=== PATIENT | female | born 1995 | race Two or more races ===

== ENCOUNTER 2021-01-03 04:09 | Emergency (ER) | payer BC ==
[~2021-01-03] VITALS: Ht 157.5 cm; Wt 108.9 kg
[2021-01-03 04:55] LABS: Urine WBC None Seen /hpf (0 - 5)
[2021-01-03 05:22] LABS: Urine Amorphous Crystal FEW /hpf (None Seen); Urine Bacteria FEW /hpf (None Seen); Urine Blood 2+ /uL (Negative); Urine Mucus FEW (None Seen); Urine Specific Gravity 1.015 (1.001-1.035)
[2021-01-03 05:45] LABS: Basophils # (auto) 0 10 ^3/uL (0-0.2); Basophils % (auto) 0.3 % (0.0-2.0); Eosinophils # (auto) 0.1 10 ^3/uL (0-0.8); Eosinophils % (auto) 0.9 % (0.0-7.0); Hematocrit 37.1 % (36.0-46.0); Hemoglobin 12.3 g/dL (12.2-16.2); Lymphocytes % (auto) 23.7 % (10.0-50.0); Mean Corpuscular Hemoglobin 29.3 pg (28.0-32.0); Mean Corpuscular Hgb Conc. 33.2 g/dL (32.0-36.0); Mean Corpuscular Volume 88.3 fL (80.0-100.0); Monocytes # (auto) 0.9 10 ^3/uL (0-1.3); Monocytes % (auto) 6.9 % (0.0-12.0); Neutrophils # (auto) 8.5 10 ^3/uL (1.6-8.6); Neutrophils % (auto) 68.2 % (37.0-80.0); Red Blood Cells 4.21 10^6/uL (4.0-5.20); Red Cell Distribution Width 13.7 % (11.8-14.3); White Blood Cell 12.5 10^3/uL (4.4-10.8)
[2021-01-03 06:16] LABS: Calcium 8.8 mg/dL (8.5-10.1); Potassium 3.6 mmol/L (3.5-5.1)
[2021-01-03 06:20] LABS: BUN/Creatinine Ratio 16.4; Bilirubin, Total 0.2 mg/dL (0.2-1.0)
[2021-01-03 07:54] VITALS: BP 110/67
[2021-01-03] MEDS ORDERED: SODIUM CHLORIDE 0.9% 1,000 ML IV ONE (08:30)
== END 2021-01-03 09:49 | disposition home or self-care (01) ==
LOC: ER 04:12
DX: O26.892 Other specified pregnancy related conditions, second trimester (principal); E86.0 Dehydration; D72.829 Elevated white blood cell count, unspecified; Z3A.19 19 weeks gestation of pregnancy
CPT/HCPCS: 36415; 76805; 80053; 81001; 84702; 85025; 86850; 86900; 86901; 96360; 99285; J7030

== ENCOUNTER 2021-05-17 12:40 | Observation (INO) | payer BC | END 2021-05-17 14:00 | disposition home or self-care (01) | LOC: LDRP 12:40 | PROVIDERS: ADMIT Obstetrics & Gynecology; ATTEND Obstetrics & Gynecology | DX: O62.9 Abnormality of forces of labor, unspecified (principal); Z3A.38 38 weeks gestation of pregnancy; Z91.040 Latex allergy status | CPT/HCPCS: 59025; 81002; G0378; G0379 ==

== ENCOUNTER 2023-02-15 07:45 | Day surgery (SDC) | payer MEDICAID ==
[2023-02-13 09:10] LABS: Basophils # (auto) 0 10 ^3/uL (0-0.2); Basophils % (auto) 0.5 % (0.0-2.0); Eosinophils # (auto) 0.1 10 ^3/uL (0-0.8); Eosinophils % (auto) 1.1 % (0.0-7.0); Hematocrit 40.3 % (36.0-46.0); Hemoglobin 13.4 g/dL (12.2-16.2); Lymphocytes % (auto) 28.4 % (10.0-50.0); Mean Corpuscular Hemoglobin 28.1 pg (28.0-32.0); Mean Corpuscular Hgb Conc. 33.2 g/dL (32.0-36.0); Mean Corpuscular Volume 84.6 fL (80.0-100.0); Monocytes # (auto) 0.7 10 ^3/uL (0-1.3); Monocytes % (auto) 6.5 % (0.0-12.0); Neutrophils # (auto) 6.7 10 ^3/uL (1.6-8.6); Neutrophils % (auto) 63.5 % (37.0-80.0); Nucleated Red Blood Cells % 0.1 %; Red Blood Cells 4.76 10^6/uL (4.0-5.20); White Blood Cell 10.5 10^3/uL (4.4-10.8)
[2023-02-13 09:13] LABS: Urine Bacteria NONE SEEN /hpf (None Seen); Urine Blood 2+ /uL (Negative); Urine Mucus FEW (None Seen); Urine WBC 3 /hpf (0 - 5)
[2023-02-13 09:19] LABS: INR 0.95 (0.9-1.15); Partial Thromboplastin Time 32.2 sec (24.6-33.4)
[2023-02-13 09:41] LABS: Albumin 3.8 g/dL (3.4-5.0); Calcium 8.5 mg/dL (8.5-10.1); Potassium 4.3 mmol/L (3.5-5.1)
[2023-02-13 09:44] LABS: BUN/Creatinine Ratio 18.1 (10.0-20.0); Bilirubin, Total 0.2 mg/dL (0.2-1.0); Total Protein 7.9 g/dL (6.4-8.2)
[~2023-02-15] VITALS: Ht 160 cm; Wt 113.4 kg
[~2023-02-15 07:45] MED LIST: PANT40TA2 PO
[2023-02-15] MEDS ORDERED: NALOXONE HCL 0.4 MG/ML VIAL ONE (08:10)
[2023-02-15] MEDS ORDERED: LIDOCAINE VISCOUS 2% 15ML UD ONE (08:10)
[2023-02-15] MEDS ORDERED: FLUMAZENIL 0.1 MG/ML INJ 10ML MDV IV ONE (08:10)
[2023-02-15] MEDS ORDERED: SODIUM CHLORIDE LOCK 0 ML ONE (08:10)
[2023-02-15] MEDS ORDERED: diphenhdrAMINE HCL 50 MG/1 ML VL ONE (08:11)
[2023-02-15] MEDS: MIDAZOLAM HCL 5 MG/ML-1ML VIAL ONE ×2 (08:27→08:30)
[2023-02-15] MEDS: fentaNYL CITRATE 100 MCG/2 ML VL ONE ×2 (08:27→08:30)
[2023-02-15 09:05] VITALS: BP 121/70
== END 2023-02-15 09:30 | disposition home or self-care (01) ==
LOC: GI 07:45
PROVIDERS: ATTEND Internal Medicine Gastroenterology
DX: R10.13 Epigastric pain (principal); R11.0 Nausea; K29.50 Unspecified chronic gastritis without bleeding
CPT/HCPCS: 36415; 43239; 80053; 81001; 81025; 85025; 85610; 85730; J1200; J2250; J2310; J3010

== ENCOUNTER 2023-07-11 19:35 | Emergency (ER) | payer MEDICAID ==
[~2023-07-11] VITALS: Ht 160 cm; Wt 114.6 kg
[2023-07-11 20:29] LABS: Urine WBC None Seen /hpf (0 - 5)
[2023-07-11 21:04] LABS: Urine Bacteria NONE SEEN /hpf (None Seen); Urine Blood 3+ /uL (Negative); Urine Clarity CLOUDY (Clear); Urine Color Red (Yellow); Urine Protein, UAD 2+ (Negative); Urine Urobilinogen Normal (Negative)
[2023-07-11 21:07] LABS: Urine Specific Gravity 1.015 (1.001-1.035)
[2023-07-11 22:24] LABS: Basophils # (auto) 0.1 10 ^3/uL (0-0.2); Basophils % (auto) 0.3 % (0.0-2.0); Eosinophils # (auto) 0.1 10 ^3/uL (0-0.8); Eosinophils % (auto) 0.7 % (0.0-7.0); Hematocrit 39.5 % (36.0-46.0); Lymphocytes # (auto) 2.7 10 ^3/uL (0.4-5.4); Lymphocytes % (auto) 16.7 % (10.0-50.0); Mean Corpuscular Hemoglobin 27.7 pg (28.0-32.0); Mean Corpuscular Hgb Conc. 32.8 g/dL (32.0-36.0); Mean Corpuscular Volume 84.6 fL (80.0-100.0); Monocytes # (auto) 0.9 10 ^3/uL (0-1.3); Monocytes % (auto) 5.7 % (0.0-12.0); Neutrophils # (auto) 12.5 10 ^3/uL (1.6-8.6); Neutrophils % (auto) 76.6 % (37.0-80.0); Red Blood Cells 4.67 10^6/uL (4.0-5.20); Red Cell Distribution Width 13.4 % (11.8-14.3); White Blood Cell 16.4 10^3/uL (4.4-10.8)
[2023-07-11 22:41] LABS: Alanine Aminotransferase 11 U/L (7-40); Albumin 4.8 g/dL (3.2-4.8); Alkaline Phosphatase 61 U/L (46-116); Anion Gap 7 (5-15); Aspartate Aminotransferase 16 U/L (13-40); BUN/Creatinine Ratio 9.3 (10.0-20.0); Blood Urea Nitrogen 7 mg/dL (9-23); Calcium 9.4 mg/dL (8.5-10.1); Carbon Dioxide 25 mmol/L (20-30); Chloride 105 mmol/L (98-107); Glucose 99 mg/dL (74-106); Potassium 4.5 mmol/L (3.5-5.1); Sodium 137 mmol/L (136-145)
[2023-07-11 22:42] LABS: Bilirubin, Total 0.4 mg/dL (0.2-1.0); Total Protein 7.9 g/dL (5.7-8.2)
[2023-07-11] MEDS ORDERED: CEFTRIAXONE SODIUM 2 GM in D5W 5% 100 ML IV ONE (23:15)
[2023-07-11] MEDS ORDERED: SODIUM CHLORIDE 0.9% 2,000 ML IV ONE (23:15)
[2023-07-11] MEDS ORDERED: ZOFR4T PO (23:27)
[2023-07-11] MEDS ORDERED: PHEN-1045 PO (23:27)
[2023-07-11] MEDS ORDERED: CIPR500T4 PO (23:27)
[2023-07-12 00:02] VITALS: BP 135/76; PULSE 72; RESP 16; TEMP 97.6; O2SAT 97
[2023-07-12] MEDS ORDERED: ceFAZolin 1GM/50ML 0 ML IV ONE (00:35)
[2023-07-12] MEDS ORDERED: cefTRIAXone 1GM/50ML D5W 100 ML IV ONE (00:36)
== END 2023-07-12 06:12 | disposition home or self-care (01) ==
LOC: ER 19:35
DX: R31.9 Hematuria, unspecified (principal); N12 Tubulo-interstitial nephritis, not specified as acute or chronic; K80.20 Calculus of gallbladder without cholecystitis without obstruction; K76.9 Liver disease, unspecified; Z90.49 Acquired absence of other specified parts of digestive tract; Z79.2 Long term (current) use of antibiotics; Z79.899 Other long term (current) drug therapy; Z91.040 Latex allergy status
CPT/HCPCS: 36415; 74176; 80053; 81001; 85025; 87086; 96361; 96365; 99285; J0696; J7060; J0690

== ENCOUNTER 2023-11-04 10:08 | Emergency (ER) | payer MEDICAID, SELFPAY ==
[~2023-11-04] VITALS: Ht 160 cm; Wt 113.2 kg
[~2023-11-04 10:08] MED LIST changes: +CIPR500T4 PO; +PHEN-1045 PO; +ZOFR4T PO
[2023-11-04 10:15] VITALS: BP 105/65; TEMP 97.7
[2023-11-04 10:55] VITALS: PULSE 83; RESP 18; O2SAT 97
== END 2023-11-04 11:21 | disposition home or self-care (01) ==
LOC: ER 10:08
DX: S61.411A Laceration without foreign body of right hand, initial encounter (principal); Z91.040 Latex allergy status; W25.XXXA Contact with sharp glass, initial encounter; Y93.89 Activity, other specified; Y92.89 Other specified places as the place of occurrence of the external cause; Y99.8 Other external cause status
CPT/HCPCS: 12001